=== PATIENT | female | born 1975 | race African-American/Black ===

== ENCOUNTER 2017-08-06 10:04 | Observation (INO) ==
[2017-08-06] MEDS ORDERED: ACETAMINOPHEN 325 MG TABLET PO PRN (11:31)
[2017-08-06] MEDS ORDERED: ONDANSETRON 4 MG/2 ML VIAL IV PRN (11:31)
[2017-08-06 12:54] LABS: Basophils % 0.3 % (0.0-0.8); Eosinophils # 0.1 10*3/uL (0.0-0.87); Eosinophils % 0.3 % (0.00-10.9); Hematocrit 38.2 VOL% (35.7-47.0); Immature Granulocytes % 0.3 %; Immature Granulocytes Absolute 0.04 #; Lymphocytes # 6.1 10*3/uL (1.4-4.0); Lymphocytes % 41.5 % (21.3-54.2); Mean Corpuscular Hemoglobin 32 PG (27-34); Mean Corpuscular Volume 94.3 FL (87-102); Mean Platelet Volume 10.1 FL (9.6-12.0); Monocytes # 0.7 10*3/uL (0.11-0.8); Monocytes % 4.5 % (1.7-12.7); Neutrophils # 7.9 10*3/uL (1.4-7.4); Neutrophils % 53.1 % (38.7-73.9); Platelet Count 232 T/CUMM (130-400); Red Blood Count 4.05 MC/CUMM (3.8-5.5); Red Cell Distribution Width 13.2 % (9.3-17.3); White Blood Count 14.8 T/CUMM (4-12)
[2017-08-06 13:16] LABS: Albumin 3.5 G/DL (3.4-5.0); Bilirubin,Total 0.5 MG/DL (0.2-1.0); Calcium 9.3 MG/DL (8.5-10.1); Osmolality,Calculated 279.1 MOS/KG (273-304); Potassium 3.7 MMOL/L (3.5-5.1); Total Protein 6.7 G/DL (6.4-8.3)
[2017-08-06 15:03] LABS: Apearance,Urine CLEAR (Clear); Bilirubin,Urine Negative (Negative); Blood, Urine Negative (Negative); Glucose,Urine (UA) Negative (Negative); Ketones,Urine Negative (Negative); Mucus,Urine Occasional /LPF (Occasional); Nitrite,Urine Negative (Negative); Protein,Urine Negative; RBC,Urine 1 /HPF (0-4); Squamous Epithelial Cell,Urine Occasional /HPF (0-10); Urine Color Yellow (Yellow); Urine Specific Gravity 1.006 (1.001-1.035); Urine Urobilinogen < 2.0 EU/DL (0.2-1.0); WBC,Urine <1 /HPF (0-6)
[2017-08-06] MEDS: DOCUSATE SODIUM 100 MG CAPSULE PO SCH (20:39)
[2017-08-07 07:20] LABS: Basophils % 0.4 % (0.0-0.8); Eosinophils # 0.1 10*3/uL (0.0-0.87); Eosinophils % 0.7 % (0.00-10.9); Hematocrit 37.3 VOL% (35.7-47.0); Hemoglobin 13.1 GM/DL (12.0-16.0); Immature Granulocytes % 0.6 %; Immature Granulocytes Absolute 0.07 #; Lymphocytes # 4.1 10*3/uL (1.4-4.0); Lymphocytes % 36.5 % (21.3-54.2); Mean Corpuscular HGB Conc 35.1 GM/DL (32-36); Mean Corpuscular Hemoglobin 32 PG (27-34); Mean Corpuscular Volume 92.1 FL (87-102); Mean Platelet Volume 10.1 FL (9.6-12.0); Monocytes # 0.6 10*3/uL (0.11-0.8); Monocytes % 5.1 % (1.7-12.7); Neutrophils # 6.4 10*3/uL (1.4-7.4); Neutrophils % 56.7 % (38.7-73.9); Platelet Count 232 T/CUMM (130-400); Red Blood Count 4.05 MC/CUMM (3.8-5.5); Red Cell Distribution Width 13.1 % (9.3-17.3); White Blood Count 11.3 T/CUMM (4-12)
[2017-08-07 07:47] LABS: Osmolality,Calculated 280.3 MOS/KG (273-304); Potassium 4.3 MMOL/L (3.5-5.1)
[2017-08-07] MEDS: DOCUSATE SODIUM 100 MG CAPSULE PO SCH ×2 (08:38→20:39)
[2017-08-07] MEDS: METOPROLOL TARTRATE 25 MG TABLET PO SCH (08:39)
[2017-08-07] MEDS: predniSONE 5 MG TABLET PO SCH (08:39)
[2017-08-07] MEDS ORDERED: POLYETHYLENE GLYCOL POWDER 255 GM BOTTLE PO ONE (09:00)
[2017-08-07] MEDS ORDERED: PANTOPRAZOLE 40 MG TABLET PO SCH (09:00)
[2017-08-07] MEDS: ALUMINUM/MAGNES/SIMETH MAX STR 30 ML UDCUP PO PRN (20:39)
[2017-08-07] MEDS: PANTOPRAZOLE 40 MG TABLET PO SCH (20:39)
[2017-08-08] MEDS: METOPROLOL TARTRATE 25 MG TABLET PO SCH (09:28)
[2017-08-08] MEDS: predniSONE 5 MG TABLET PO SCH (09:28)
[2017-08-08] MEDS: DOCUSATE SODIUM 100 MG CAPSULE PO SCH (09:28)
[2017-08-08] MEDS: ALUMINUM/MAGNES/SIMETH MAX STR 30 ML UDCUP PO PRN (09:28)
[2017-08-08] MEDS: PANTOPRAZOLE 40 MG TABLET PO SCH (09:28)
[2017-08-08 11:18] VITALS: BP 109/73
== END 2017-08-08 13:21 | disposition home or self-care (01) ==
LOC: N.2E
PROVIDERS: ADMIT Family Medicine; ATTEND Family Medicine

== ENCOUNTER 2018-09-19 16:14 | Observation (INO) ==
[2018-09-19 17:19] LABS: Basophils # 0.1 10*3/uL (0.0-0.2); Basophils % 0.3 % (0.0-0.8); Eosinophils # 0.1 10*3/uL (0.0-0.87); Eosinophils % 0.5 % (0.00-10.9); Hematocrit 39.9 VOL% (35.7-47.0); Hemoglobin 13.2 GM/DL (12.0-16.0); Immature Granulocytes % 0.5 %; Lymphocytes # 4.8 10*3/uL (1.4-4.0); Lymphocytes % 25.5 % (21.3-54.2); Mean Corpuscular HGB Conc 33.1 GM/DL (32-36); Mean Corpuscular Hemoglobin 32 PG (27-34); Mean Corpuscular Volume 95.7 FL (87-102); Mean Platelet Volume 10.1 FL (9.6-12.0); Monocytes # 0.9 10*3/uL (0.11-0.8); Monocytes % 4.7 % (1.7-12.7); Neutrophils # 12.8 10*3/uL (1.4-7.4); Neutrophils % 68.5 % (38.7-73.9); Platelet Count 311 T/CUMM (130-400); Red Blood Count 4.17 MC/CUMM (3.8-5.5); Red Cell Distribution Width 12.5 % (9.3-17.3); White Blood Count 18.7 T/CUMM (4-12)
[2018-09-19 17:30] LABS: INR 0.9; PT Patient Result 10.3 SECS; Partial Thromboplastin Time 27.9 SECS (0-40)
[2018-09-19 17:39] LABS: Alanine Aminotransferase 21 U/L (13-56); Alkaline Phosphatase 126 U/L (45-117); Aspartate Amino Transferase 10 U/L (0-37); Bilirubin,Total < 0.39 MG/DL (0.2-1.0); Blood Urea Nitrogen 15 MG/DL (7-18); Calcium 9.1 MG/DL (8.5-10.1); Glucose 107 MG/DL (74-106); Osmolality,Calculated 277.5 MOS/KG (273-304); Potassium 3.6 MMOL/L (3.5-5.1); Sodium 139 MMOL/L (136-145); Total Protein 7.7 G/DL (6.4-8.3); Troponin I < 0.015 NG/ML (0.00-0.045)
[2018-09-19] MEDS ORDERED: POTASSIUM CHLORIDE 20 MEQ TABLET PO STA (18:45)
[2018-09-19 19:15] LABS: Calcium 9.3 MG/DL (8.5-10.1); Osmolality,Calculated 277.5 MOS/KG (273-304); Potassium 3.6 MMOL/L (3.5-5.1); Thyroid Stimulating Hormone 0.591 uIU/ml (0.358-3.74)
[2018-09-19] MEDS ORDERED: ALBUTEROL/IPRATROPIUM 3 ML NEB RESP TX PRN (19:30)
[2018-09-19 19:42] LABS: Barbiturates Screen,Urine Negative (Negative); Benzodiazepines Screen,Urine Negative (Negative); Cannabinoid Screen,Urine Negative (Negative); Opiate Screen,Urine Positive (Negative); Phencyclidine Screen,Urine Negative (Negative)
[2018-09-19] MEDS: FAMOTIDINE 20 MG TABLET PO SCH (21:40)
[2018-09-19] MEDS ORDERED: ALUM/MAG/SIMETH/LIDO VISC 1:1 30 ML BOTTLE PO ONE (22:28)
[2018-09-20 05:27] LABS: Basophils # 0.1 10*3/uL (0.0-0.2); Basophils % 0.4 % (0.0-0.8); Eosinophils # 0.1 10*3/uL (0.0-0.87); Eosinophils % 0.6 % (0.00-10.9); Hematocrit 37.6 VOL% (35.7-47.0); Hemoglobin 12.6 GM/DL (12.0-16.0); Immature Granulocytes % 0.4 %; Immature Granulocytes Absolute 0.07 #; Lymphocytes # 5.9 10*3/uL (1.4-4.0); Mean Corpuscular HGB Conc 33.5 GM/DL (32-36); Mean Corpuscular Hemoglobin 32 PG (27-34); Mean Corpuscular Volume 95.4 FL (87-102); Mean Platelet Volume 10.9 FL (9.6-12.0); Monocytes # 1.2 10*3/uL (0.11-0.8); Monocytes % 7.1 % (1.7-12.7); Neutrophils # 9.6 10*3/uL (1.4-7.4); Neutrophils % 56.5 % (38.7-73.9); Platelet Count 309 T/CUMM (130-400); Red Blood Count 3.94 MC/CUMM (3.8-5.5); Red Cell Distribution Width 12.4 % (9.3-17.3)
[2018-09-20 05:34] LABS: Calcium 9.1 MG/DL (8.5-10.1); Osmolality,Calculated 274.5 MOS/KG (273-304); Potassium 4.3 MMOL/L (3.5-5.1)
[2018-09-20] MEDS ORDERED: ASPIRIN EC 81 MG TABLET PO SCH (09:00)
[2018-09-20] MEDS ORDERED: ENOXAPARIN 40 MG/0.4 ML SYRINGE SUBCUT SCH (09:00)
[2018-09-20] MEDS ORDERED: PANTOPRAZOLE 40 MG TABLET PO SCH (09:00)
[2018-09-20] MEDS ORDERED: amLODIPine 5 MG TABLET PO SCH (09:00)
[2018-09-20] MEDS ORDERED: METOPROLOL SUCCINATE XL 50 MG TABLET PO SCH (09:00)
[2018-09-20 09:24] LABS: Troponin I < 0.015 NG/ML (0.00-0.045)
[2018-09-20] MEDS: PANTOPRAZOLE 40 MG VIAL IV SCH ×2 (09:35→21:30)
[2018-09-20] MEDS ORDERED: ENOXAPARIN 80 MG/0.8 ML SYRINGE SUBCUT SCH (10:00)
[2018-09-20 11:30] LABS: Troponin I < 0.015 NG/ML (0.00-0.045)
[2018-09-20] MEDS ORDERED: DILTIAZEM 60 MG TABLET PO SCH (12:00)
[2018-09-20] MEDS: FAMOTIDINE 20 MG TABLET PO SCH ×2 (14:12→21:31)
[2018-09-20 15:53] LABS: Apearance,Urine CLEAR (Clear); Bilirubin,Urine Negative (Negative); Blood, Urine Small mg/dL (Negative); Glucose,Urine (UA) Negative (Negative); Hyaline Casts,Urine 1 /LPF (0-3); Ketones,Urine 5 mg/dL (Negative); Mucus,Urine Few /LPF (Occasional); Nitrite,Urine Negative (Negative); Protein,Urine Negative; RBC,Urine 2 /HPF (0-4); Squamous Epithelial Cell,Urine Occasional /HPF (0-10); Urine Color Yellow (Yellow); Urine Specific Gravity 1.019 (1.001-1.035); Urine Urobilinogen < 2.0 EU/DL (0.2-1.0); WBC,Urine 1 /HPF (0-6)
[2018-09-21 07:15] LABS: Basophils # 0.1 10*3/uL (0.0-0.2); Basophils % 0.3 % (0.0-0.8); Eosinophils # 0.1 10*3/uL (0.0-0.87); Eosinophils % 0.7 % (0.00-10.9); Hematocrit 40.4 VOL% (35.7-47.0); Immature Granulocytes % 0.5 %; Immature Granulocytes Absolute 0.08 #; Lymphocytes # 4.1 10*3/uL (1.4-4.0); Lymphocytes % 26.7 % (21.3-54.2); Mean Corpuscular HGB Conc 32.2 GM/DL (32-36); Mean Corpuscular Hemoglobin 31 PG (27-34); Mean Corpuscular Volume 97.1 FL (87-102); Monocytes # 0.7 10*3/uL (0.11-0.8); Monocytes % 4.6 % (1.7-12.7); Neutrophils # 10.2 10*3/uL (1.4-7.4); Neutrophils % 67.2 % (38.7-73.9); Platelet Count 296 T/CUMM (130-400); Red Blood Count 4.16 MC/CUMM (3.8-5.5); Red Cell Distribution Width 12.3 % (9.3-17.3); White Blood Count 15.2 T/CUMM (4-12)
[2018-09-21 07:33] LABS: Calcium 9.2 MG/DL (8.5-10.1); Osmolality,Calculated 275.7 MOS/KG (273-304); Potassium 4.4 MMOL/L (3.5-5.1)
[2018-09-21] MEDS: PANTOPRAZOLE 40 MG VIAL IV SCH (08:43)
[2018-09-21] MEDS ORDERED: LIDOCAINE 1% 5 ML VIAL ONE (09:00)
[2018-09-21] MEDS ORDERED: PROPOFOL 200 MG/20 ML VIAL IV ONE (09:00)
[2018-09-21] MEDS: FAMOTIDINE 20 MG TABLET PO SCH (15:12)
[2018-09-21 16:20] VITALS: BP 97/59
[2018-09-21] MEDS ORDERED: PANTOPRAZOLE 40 MG TABLET PO SCH (21:00)
== END 2018-09-21 16:04 | disposition home or self-care (01) ==
LOC: N.EDINP 16:14 → N.ED 16:14 → SUATTDRO 18:22 → N.TELES 20:25
PROVIDERS: ADMIT Internal Medicine; ATTEND Internal Medicine Geriatric Medicine

== ENCOUNTER 2018-10-20 18:40 | Observation (INO) ==
[2018-10-20 19:41] LABS: Basophils # 0.1 10*3/uL (0.0-0.2); Basophils % 0.5 % (0.0-0.8); Eosinophils # 0.1 10*3/uL (0.0-0.87); Eosinophils % 0.5 % (0.00-10.9); Hematocrit 40.1 VOL% (35.7-47.0); Hemoglobin 13.6 GM/DL (12.0-16.0); Immature Granulocytes % 0.5 %; Immature Granulocytes Absolute 0.07 #; Lymphocytes # 5.3 10*3/uL (1.4-4.0); Lymphocytes % 34.4 % (21.3-54.2); Mean Corpuscular HGB Conc 33.9 GM/DL (32-36); Mean Corpuscular Volume 93.5 FL (87-102); Mean Platelet Volume 10.2 FL (9.6-12.0); Monocytes % 5.8 % (1.7-12.7); Neutrophils % 58.3 % (38.7-73.9); Platelet Count 302 T/CUMM (130-400); Red Blood Count 4.29 MC/CUMM (3.8-5.5); Red Cell Distribution Width 11.9 % (9.3-17.3); White Blood Count 15.3 T/CUMM (4-12)
[2018-10-20 19:54] LABS: PT Patient Result 10.9 SECS
[2018-10-20 20:02] LABS: Alanine Aminotransferase 32 U/L (13-56); Albumin 4.3 G/DL (3.4-5.0); Alkaline Phosphatase 119 U/L (45-117); Aspartate Amino Transferase 15 U/L (0-37); Bilirubin,Total < 0.39 MG/DL (0.2-1.0); Blood Urea Nitrogen 15 MG/DL (7-18); Calcium 9.7 MG/DL (8.5-10.1); Glucose 106 MG/DL (74-106); Osmolality,Calculated 275.7 MOS/KG (273-304); Total Protein 8.2 G/DL (6.4-8.3)
[2018-10-20] MEDS ORDERED: POTASSIUM CHLORIDE 20 MEQ TABLET PO STA (20:14)
[2018-10-20] MEDS ORDERED: HYDROmorphone 2 MG/1 ML VIAL IV ONE (20:16)
[2018-10-20 20:24] LABS: Thyroid Stimulating Hormone 0.73 uIU/ml (0.358-3.74)
[2018-10-20 21:00] LABS: Apearance,Urine CLEAR (Clear); Bilirubin,Urine Negative (Negative); Blood, Urine Small mg/dL (Negative); Glucose,Urine (UA) Negative (Negative); Ketones,Urine 5 mg/dL (Negative); Mucus,Urine Few /LPF (Occasional); Nitrite,Urine Negative (Negative); Protein,Urine Negative; RBC,Urine 2 /HPF (0-4); Squamous Epithelial Cell,Urine Occasional /HPF (0-10); Urine Color Yellow (Yellow); Urine Specific Gravity 1.026 (1.001-1.035); WBC,Urine 2 /HPF (0-6)
[2018-10-20] MEDS ORDERED: ALUM/MAG/SIMETH/LIDO VISC 1:1 30 ML BOTTLE PO ONE (21:01)
[2018-10-20 21:14] LABS: Barbiturates Screen,Urine Negative (Negative); Benzodiazepines Screen,Urine Negative (Negative); Cannabinoid Screen,Urine Negative (Negative); Opiate Screen,Urine Positive (Negative); Phencyclidine Screen,Urine Negative (Negative)
[2018-10-20] MEDS ORDERED: ACETAMINOPHEN 325 MG TABLET PO PRN (22:22)
[2018-10-20] MEDS ORDERED: ONDANSETRON 4 MG/2 ML VIAL IV PRN (22:22)
[2018-10-20] MEDS ORDERED: HYDROmorphone 2 MG/1 ML VIAL IV PRN (22:22)
[2018-10-20] MEDS ORDERED: POTASSIUM CHLORIDE 20 MEQ TABLET PO PRN (23:07)
[2018-10-20] MEDS: SODIUM CHLORIDE 0.9% 1,000 ML IV SCH (23:23)
[2018-10-21 04:56] LABS: Basophils % 0.2 % (0.0-0.8); Eosinophils # 0.1 10*3/uL (0.0-0.87); Eosinophils % 0.6 % (0.00-10.9); Hematocrit 40.2 VOL% (35.7-47.0); Hemoglobin 13.4 GM/DL (12.0-16.0); Immature Granulocytes % 0.3 %; Immature Granulocytes Absolute 0.04 #; Lymphocytes # 4.3 10*3/uL (1.4-4.0); Lymphocytes % 33.3 % (21.3-54.2); Mean Corpuscular HGB Conc 33.3 GM/DL (32-36); Mean Corpuscular Volume 94.8 FL (87-102); Mean Platelet Volume 10.6 FL (9.6-12.0); Monocytes % 5.4 % (1.7-12.7); Neutrophils % 60.2 % (38.7-73.9); Platelet Count 282 T/CUMM (130-400); Red Blood Count 4.24 MC/CUMM (3.8-5.5); Red Cell Distribution Width 11.9 % (9.3-17.3)
[2018-10-21 05:20] LABS: Albumin 3.9 G/DL (3.4-5.0); Bilirubin,Total 0.4 MG/DL (0.2-1.0); Calcium 9.4 MG/DL (8.5-10.1); Osmolality,Calculated 276.5 MOS/KG (273-304); Risk Ratio 3.58; Total Protein 7.7 G/DL (6.4-8.3); VLDL CHOLESTEROL 21.8 MG/DL
[2018-10-21] MEDS ORDERED: PANTOPRAZOLE 40 MG VIAL IV SCH (09:00)
[2018-10-21] MEDS: APIXABAN 5 MG TABLET PO SCH ×2 (09:10→20:49)
[2018-10-21] MEDS: GABAPENTIN 300 MG CAPSULE PO SCH ×3 (09:10→20:49)
[2018-10-21] MEDS: FUROSEMIDE 40 MG TABLET PO SCH (09:10)
[2018-10-21] MEDS: carBAMazepine 200 MG TABLET PO SCH ×3 (09:10→20:51)
[2018-10-21] MEDS: DILTIAZEM CD 120 MG CAPSULE PO SCH (09:10)
[2018-10-21] MEDS: DOCUSATE SODIUM 100 MG CAPSULE PO SCH ×2 (09:10→20:49)
[2018-10-21] MEDS: METOPROLOL SUCCINATE XL 25 MG TABLET PO SCH (11:32)
[2018-10-21] MEDS: ASCORBIC ACID 500 MG TABLET PO SCH ×2 (11:33→20:51)
[2018-10-21] MEDS: CYCLOBENZAPRINE 10 MG TABLET PO PRN (13:12)
[2018-10-21] MEDS: SUCRALFATE 1 GM TABLET PO SCH ×2 (15:58→20:49)
[2018-10-21] MEDS: SODIUM CHLORIDE 0.9% 1,000 ML IV SCH (17:07)
[2018-10-21] MEDS ORDERED: ALUMINUM/MAGNES/SIMETH MAX STR 30 ML UDCUP PO PRN (18:36)
[2018-10-21] MEDS: PANTOPRAZOLE 40 MG VIAL IV SCH (20:50)
[2018-10-22] MEDS: CYCLOBENZAPRINE 10 MG TABLET PO PRN (07:42)
[2018-10-22] MEDS: METOPROLOL SUCCINATE XL 25 MG TABLET PO SCH (08:19)
[2018-10-22] MEDS: SUCRALFATE 1 GM TABLET PO SCH ×4 (08:19→21:07)
[2018-10-22] MEDS: POTASSIUM CHLORIDE 20 MEQ TABLET PO SCH (08:20)
[2018-10-22] MEDS: ASCORBIC ACID 500 MG TABLET PO SCH ×2 (08:20→21:06)
[2018-10-22] MEDS: GABAPENTIN 300 MG CAPSULE PO SCH ×3 (08:20→21:07)
[2018-10-22] MEDS: DOCUSATE SODIUM 100 MG CAPSULE PO SCH ×2 (08:20→21:06)
[2018-10-22] MEDS: DILTIAZEM CD 120 MG CAPSULE PO SCH (08:20)
[2018-10-22] MEDS: FUROSEMIDE 40 MG TABLET PO SCH (08:20)
[2018-10-22] MEDS: carBAMazepine 200 MG TABLET PO SCH ×3 (08:20→21:07)
[2018-10-22] MEDS: SODIUM CHLORIDE 0.9% 1,000 ML IV SCH (08:21)
[2018-10-22] MEDS: PANTOPRAZOLE 40 MG VIAL IV SCH ×2 (08:21→21:07)
[2018-10-22] MEDS: APIXABAN 5 MG TABLET PO SCH ×2 (08:21→21:07)
[2018-10-23] MEDS: SODIUM CHLORIDE 0.9% 1,000 ML IV SCH ×3 (03:22→20:22)
[2018-10-23 06:06] LABS: Calcium 8.6 MG/DL (8.5-10.1); Osmolality,Calculated 283.1 MOS/KG (273-304)
[2018-10-23] MEDS: ASCORBIC ACID 500 MG TABLET PO SCH ×2 (08:55→20:17)
[2018-10-23] MEDS: POTASSIUM CHLORIDE 20 MEQ TABLET PO SCH (08:56)
[2018-10-23] MEDS: DOCUSATE SODIUM 100 MG CAPSULE PO SCH ×2 (08:56→20:16)
[2018-10-23] MEDS: DILTIAZEM CD 120 MG CAPSULE PO SCH (08:56)
[2018-10-23] MEDS: APIXABAN 5 MG TABLET PO SCH ×2 (08:56→20:17)
[2018-10-23] MEDS: carBAMazepine 200 MG TABLET PO SCH ×2 (08:56→20:16)
[2018-10-23] MEDS: FUROSEMIDE 40 MG TABLET PO SCH (08:56)
[2018-10-23] MEDS: SUCRALFATE 1 GM TABLET PO SCH ×4 (08:56→20:15)
[2018-10-23] MEDS: METOPROLOL SUCCINATE XL 25 MG TABLET PO SCH (08:56)
[2018-10-23] MEDS: GABAPENTIN 300 MG CAPSULE PO SCH (08:56)
[2018-10-23] MEDS: PANTOPRAZOLE 40 MG VIAL IV SCH ×2 (08:57→20:17)
[2018-10-24 06:14] LABS: Calcium 8.9 MG/DL (8.5-10.1); Osmolality,Calculated 276.4 MOS/KG (273-304)
[2018-10-24 06:30] LABS: Basophils % 0.3 % (0.0-0.8); Eosinophils # 0.1 10*3/uL (0.0-0.87); Eosinophils % 0.7 % (0.00-10.9); Hematocrit 38.5 VOL% (35.7-47.0); Hemoglobin 12.5 GM/DL (12.0-16.0); Immature Granulocytes % 0.4 %; Immature Granulocytes Absolute 0.04 #; Lymphocytes # 3.7 10*3/uL (1.4-4.0); Lymphocytes % 36.2 % (21.3-54.2); Mean Corpuscular HGB Conc 32.5 GM/DL (32-36); Mean Corpuscular Volume 97.7 FL (87-102); Mean Platelet Volume 10.6 FL (9.6-12.0); Monocytes % 4.6 % (1.7-12.7); Neutrophils % 57.8 % (38.7-73.9); Platelet Count 223 T/CUMM (130-400); Red Blood Count 3.94 MC/CUMM (3.8-5.5); Red Cell Distribution Width 11.9 % (9.3-17.3); White Blood Count 10.3 T/CUMM (4-12)
[2018-10-24] MEDS: ASCORBIC ACID 500 MG TABLET PO SCH ×2 (09:23→21:25)
[2018-10-24] MEDS: SUCRALFATE 1 GM TABLET PO SCH ×4 (09:23→21:24)
[2018-10-24] MEDS: DOCUSATE SODIUM 100 MG CAPSULE PO SCH ×2 (09:23→21:24)
[2018-10-24] MEDS: POTASSIUM CHLORIDE 20 MEQ TABLET PO SCH (09:23)
[2018-10-24] MEDS: FUROSEMIDE 40 MG TABLET PO SCH (09:23)
[2018-10-24] MEDS: DILTIAZEM CD 120 MG CAPSULE PO SCH (09:24)
[2018-10-24] MEDS: PANTOPRAZOLE 40 MG VIAL IV SCH ×2 (09:24→21:22)
[2018-10-24] MEDS: METOPROLOL SUCCINATE XL 25 MG TABLET PO SCH (09:24)
[2018-10-24] MEDS: APIXABAN 5 MG TABLET PO SCH ×2 (09:24→21:25)
[2018-10-24] MEDS: SODIUM CHLORIDE 0.9% 1,000 ML IV SCH (10:07)
[2018-10-24] MEDS: carBAMazepine 200 MG TABLET PO SCH (21:24)
[2018-10-25] MEDS: SUCRALFATE 1 GM TABLET PO SCH ×3 (07:42→16:49)
[2018-10-25] MEDS: ASCORBIC ACID 500 MG TABLET PO SCH (08:47)
[2018-10-25] MEDS: POTASSIUM CHLORIDE 20 MEQ TABLET PO SCH (08:47)
[2018-10-25] MEDS: METOPROLOL SUCCINATE XL 25 MG TABLET PO SCH (08:47)
[2018-10-25] MEDS: DILTIAZEM CD 120 MG CAPSULE PO SCH (08:47)
[2018-10-25] MEDS: FUROSEMIDE 40 MG TABLET PO SCH (08:47)
[2018-10-25] MEDS: APIXABAN 5 MG TABLET PO SCH (08:47)
[2018-10-25] MEDS: DOCUSATE SODIUM 100 MG CAPSULE PO SCH (08:47)
[2018-10-25] MEDS: PANTOPRAZOLE 40 MG VIAL IV SCH (08:48)
[2018-10-25 12:09] VITALS: BP 124/77
== END 2018-10-25 17:47 | disposition home or self-care (01) | DRG 47 ==
LOC: N.ED 18:40 → N.EDINP 21:25 → INTOOBSV 21:25 → N.TELEN 21:48
PROVIDERS: ADMIT Internal Medicine; ATTEND Internal Medicine

== ENCOUNTER 2021-07-30 04:54 | Observation (INO) ==
[2021-07-30] MEDS ORDERED: ONDANSETRON 4 MG/2 ML VIAL IV STA (05:23)
[2021-07-30] MEDS ORDERED: ASPIRIN 325 MG TABLET PO STA (05:23)
[2021-07-30 06:00] LABS: Basophils # 0.1 10*3/uL (0.0-0.2); Basophils % 0.2 % (0.0-0.8); Eosinophils % 0.1 % (0.00-10.9); Hematocrit 40.5 VOL% (35.7-47.0); Hemoglobin 13.9 GM/DL (12.0-16.0); Immature Granulocytes % 0.6 %; Immature Granulocytes Absolute 0.13 #; Lymphocytes # 3.1 10*3/uL (1.4-4.0); Lymphocytes % 13.6 % (21.3-54.2); Mean Corpuscular HGB Conc 34.3 GM/DL (32-36); Mean Corpuscular Volume 96.9 FL (87-102); Monocytes % 2.6 % (1.7-12.7); Neutrophils % 82.9 % (38.7-73.9); Platelet Count 205 T/CUMM (130-400); Red Blood Count 4.18 MC/CUMM (3.8-5.5); Red Cell Distribution Width 13.2 % (9.3-17.3); White Blood Count 22.5 T/CUMM (4-12)
[2021-07-30 06:10] LABS: PT Patient Result 11.4 SECS (10.5-12.0); Partial Thromboplastin Time 26.8 SECS (23.8-32.1)
[2021-07-30 06:21] LABS: Hypochromia Slight; Lymphocytes 9 % (20-55); Segmented Neutrophils 88 % (50-85); Total Cells Counted 100
[2021-07-30 06:29] LABS: Alanine Aminotransferase 38 U/L (13-56); Albumin 3.3 G/DL (3.4-5.0); Alkaline Phosphatase 101 U/L (45-117); Aspartate Amino Transferase 17 U/L (0-37); Bilirubin,Total < 0.39 MG/DL (0.20-1.00); Blood Urea Nitrogen 11 MG/DL (7-18); Calcium 8.9 MG/DL (8.5-10.1); Carbon Dioxide 25 MMOL/L (21-32); Estimated Glom Filtration Rate 131 ML/MIN; Glucose 109 MG/DL (74-106); Osmolality,Calculated 276.5 MOS/KG (273-304); Potassium 4.3 MMOL/L (3.5-5.1); Sodium 139 MMOL/L (136-145); Total Protein 7.2 G/DL (6.4-8.2)
[2021-07-30 06:41] LABS: Bilirubin,Urine Negative (Negative); Blood, Urine Small mg/dL (Negative); Glucose,Urine (UA) Negative (Negative); Ketones,Urine Negative (Negative); Mucus,Urine Occasional /LPF (Occasional); Nitrite,Urine Negative (Negative); Protein,Urine Negative; RBC,Urine 4 /HPF (0-4); Squamous Epithelial Cell,Urine Occasional /HPF (0-10); Urine Appearance CLEAR (Clear); Urine Color Yellow (Yellow); Urine Urobilinogen < 2.0 EU/DL (<2.0)
[2021-07-30 06:57] LABS: Barbiturates Screen,Urine Negative (Negative); Benzodiazepines Screen,Urine Negative (Negative); Cannabinoid Screen,Urine Negative (Negative); Opiate Screen,Urine Positive (Negative); Phencyclidine Screen,Urine Negative (Negative)
[2021-07-30] MEDS ORDERED: DEXTROSE 10% 25 GM/250 ML BAG IV PRN (10:02)
[2021-07-30] MEDS ORDERED: ONDANSETRON 4 MG/2 ML VIAL IV PRN (10:02)
[2021-07-30] MEDS ORDERED: GLUCAGON 1 MG VIAL IM PRN (10:02)
[2021-07-30] MEDS ORDERED: ENOXAPARIN 40 MG/0.4 ML SYRINGE SUBCUT SCH (10:30)
[2021-07-30 10:48] LABS: Risk Ratio 1.76; VLDL Cholesterol 4.8 MG/DL
[2021-07-30] MEDS ORDERED: LORazepam 2 MG/1 ML VIAL IV ONE (12:29)
[2021-07-30] MEDS: VERAPAMIL SR 120 MG TABLET PO SCH (18:12)
[2021-07-30 19:30] LABS: Ferritin 113.3 ng/mL (8-252)
[2021-07-30] MEDS: CHOLECALCIFEROL 5,000 UNIT TABLET PO SCH (20:19)
[2021-07-30] MEDS: ASCORBIC ACID 500 MG TABLET PO SCH (20:20)
[2021-07-30] MEDS: APIXABAN 5 MG TABLET PO SCH (20:20)
[2021-07-30] MEDS ORDERED: atenoloL 25 MG TABLET PO SCH (21:00)
[2021-07-30] MEDS ORDERED: ATORVASTATIN 40 MG TABLET PO SCH (21:00)
[2021-07-31 07:04] LABS: Basophils % 0.3 % (0.0-0.8); Eosinophils # 0.1 10*3/uL (0.0-0.87); Eosinophils % 0.4 % (0.00-10.9); Hematocrit 41.4 VOL% (35.7-47.0); Hemoglobin 13.7 GM/DL (12.0-16.0); Immature Granulocytes % 0.5 %; Immature Granulocytes Absolute 0.06 #; Lymphocytes # 3.7 10*3/uL (1.4-4.0); Lymphocytes % 28.1 % (21.3-54.2); Mean Corpuscular HGB Conc 33.1 GM/DL (32-36); Mean Corpuscular Volume 97.9 FL (87-102); Mean Platelet Volume 10.5 FL (9.6-12.0); Monocytes % 4.5 % (1.7-12.7); Neutrophils % 66.2 % (38.7-73.9); Platelet Count 226 T/CUMM (130-400); Red Blood Count 4.23 MC/CUMM (3.8-5.5); White Blood Count 13.2 T/CUMM (4-12)
[2021-07-31 07:22] LABS: Calcium 8.8 MG/DL (8.5-10.1); Osmolality,Calculated 278.4 MOS/KG (273-304); Potassium 3.9 MMOL/L (3.5-5.1)
[2021-07-31 07:24] LABS: Risk Ratio 1.72; VLDL Cholesterol 5.8 MG/DL
[2021-07-31 07:32] LABS: Free T4 (Free Thyroxine) 1.52 NG/DL (0.76-1.46); Thyroid Stimulating Hormone 0.797 uIU/ml (0.358-3.74)
[2021-07-31 08:07] VITALS: BP 91/53
[2021-07-31] MEDS ORDERED: NEBIVOLOL 10 MG TABLET PO SCH (09:00)
[2021-07-31] MEDS ORDERED: PANTOPRAZOLE 40 MG TABLET PO SCH (09:00)
[2021-07-31] MEDS ORDERED: AMIODARONE 200 MG TABLET PO SCH (09:00)
[2021-07-31] MEDS ORDERED: ASPIRIN EC 81 MG TABLET PO SCH (09:00)
[2021-07-31] MEDS: ASCORBIC ACID 500 MG TABLET PO SCH (09:24)
[2021-07-31] MEDS: CHOLECALCIFEROL 5,000 UNIT TABLET PO SCH (09:24)
[2021-07-31] MEDS: APIXABAN 5 MG TABLET PO SCH (09:25)
[2021-07-31] MEDS: VERAPAMIL SR 120 MG TABLET PO SCH (09:28)
[2021-08-02 14:26] LABS: CDT Result Negative (Negative); CDT Specimen Source STOOL
== END 2021-07-31 11:04 | disposition home or self-care (01) ==
LOC: N.ED 04:54 → N.EDINP 04:54 → N.5E 13:52
PROVIDERS: ADMIT Internal Medicine; ATTEND Internal Medicine